=== PATIENT | female | born 1990 | race Caucasian/White ===

== ENCOUNTER 2019-03-13 05:25 | Inpatient (IN) | payer BC, OTHER ==
[2019-03-13] MEDS ORDERED: Lactated Ringers 1000 ML Bag* 1,000 ML IV ONE ×2 (07:56→08:06)
[2019-03-13] MEDS ORDERED: Buffered Lidocaine 1% SYRIN* 1 ML/SYRINGE INTRADERM ONE (07:56)
[2019-03-13] MEDS ORDERED: Lactated Ringers 1000 ML Bag* 1,000 ML IV SCH ×3 (08:00→20:00)
[2019-03-13] MEDS ORDERED: Sodium Citrate/Citric Acid* 15 ML UDC PO PRN (08:06)
[2019-03-13] MEDS ORDERED: Phenylephrine 40 MCG/ML SYRINGE IV PUSH PRN (08:06)
[2019-03-13] MEDS ORDERED: Famotidine TAB* 20 MG PO PRN (08:06)
--- NOTE | 2019-03-13 08:06 | HP ---
General Information - Reason for Visit Pt woke with ctx at about 0300, progressively worsening. 1-2cm dilation on presentation at about 0530. uncomplicated. - General Information Maternal Age: 28 Grav: 1 Para: 0 Estimated Due Date: 03/23/19 Determined By: Early Ultrasound Gestational Age in Weeks/Days: 38+4 wks Maternal Blood Type and Rh: A Negative - Results this Serology/RPR Result: Non-Reactive Rubella Result: Immune HBsAg Result: Negative HIV Result: Negative GBS Culture Result: Negative Past Medical History Delivery History: See Records Pertinent Past Medical History: See Records - h/o anxiety, back pain Pertinent Past Surgical History: See Records - breast augmentation Pertinent Family History: Non-Contributory - Antepartal Records Antepartal Records: Reviewed, Uncomplicated Review of Systems Constitutional: Uncomfortable CV Complaint: No Respiratory: Shortness of Breath: No Gastrointestinal: No Nausea/Vomiting Genitourinary: No Dysuria, No Bleeding, No Leaking Fluid Musculoskeletal: Contractions Neurological: No Headache Movement: Normal Exam Allergies/Adverse Reactions: Allergies Penicillins Allergy (Verified 03/13/19 05:41) Hives 126/93, P85, RR17, T98.1 - Measurements Height: 5 ft 6.93 in Weight: 182 lb 5.156 oz Weight in lbs: [phone] Body Mass Index (BMI): 28.6 Pre- Weight: 141 lb 1.533 oz Weight Gained This : 41.226 lbs and 0.007 ozs - Exam Breast: Breast Exam Deferred CVA: No CVA Tenderness Heart: Normal Rhythm/Heart Sounds HEENT: No Significant Findings Lungs: Clear Bilaterally Rectal: Rectal Exam Deferred - Abdominal Exam Abdomen Exam: Non-Tender, Fundal Height Consistent with Dates Targeted Exam Findings Cervical Exam: 3cm Effacement: 100% Station: -1 Presenting Part: Vertex Membrane Status: Intact Bleeding/Discharge: None EFM Findings - External Monitor Findings Baseline Heart Rate: 130 External Monitor Findings: Accelerations Present, No Pattern of Variable or Late Decelerations, Variability Moderate, Baseline Stable Contractions: Irregular, Strong Contraction Frequency: Q2-3 Assessment/Plan - Assessment 38+4 wks getting into active labor, intense ctx. Very reassuring status. - Plan Plan: Admit - Anticipate Vaginal Delivery Plan Comment: Pt requests epidural. IV, labs. Expect . - Date/Time of Admission Date of Admission: 03/13/19 Time of Admission: 08:07
[2019-03-13] MEDS ORDERED: OBEPIDURAL* 250 ML EPIDURAL ONE (08:13)
[2019-03-13 08:23] LABS: ABS Basophils 0 10^3/ul (0-0.2); ABS Eosinophils 0 10^3/ul (0-0.6); ABS Lymphocytes 1.4 10^3/ul (1.0-4.8); ABS Monocytes 0.6 10^3/ul (0-0.8); ABS Neutrophils 12.2 10^3/ul (1.5-7.7); ABS Nucleated RBC 0 10^3/ul; Eosinophil % 0.1 %; Hematocrit 35 % (33-41); Hemoglobin 12.1 g/dL (12.0-16.0); Lymphocyte % 9.7 %; Mean Corpuscular HGB Conc 34 g/dL (31-36); Mean Corpuscular Hemoglobin 30 pg (27-31); Mean Corpuscular Volume 88 fL (80-97); Mean Platelet Volume 10.3 fL (7.4-10.4); Nucleated Red Blood Cells % 0; Platelet Count 246 10^3/uL (150-450); Red Blood Count 4.01 10^6 /uL (3.70-4.87); Red Cell Distribution Width 14 % (10.5-15); White Blood Count 14.2 10^3/uL (3.5-10.8)
[2019-03-13] MEDS ORDERED: OBEPIDURAL* 250 ML EPIDURAL SCH (09:00)
[2019-03-13] MEDS ORDERED: Oxytocin in LR* 20 UNITS/1,000 ML BAG IVPB ONE (11:19)
[2019-03-13] MEDS ORDERED: Dibucaine 1% 28.35 GM TUBE ONE (11:54)
[2019-03-13] MEDS ORDERED: Witch Hazel PAD* JAR ONE (11:55)
--- NOTE | 2019-03-13 15:17 | PROCNOTE ---
[facility]: Delivery Note - Delivery A Date of : 03/13/19 Time of : 11:46 Sex: Male Weight at : 7 lb 1 oz Score 1 Minute: 8 Score 5 Minutes: 9 Gestational Age in Weeks and Days at Delivery: 38 Weeks and 4 Days Delivery Method: Spontaneous Vaginal Labor: Spontaneous Did Patient attempt ?: N/A, No Previous Amniotic Fluid: Clear Estimated Blood Loss: 300 Anesthesia/Analgesia: CEI for Labor Delivered By: Clive Suarez - Nursery Level of Nursery: Regular/Bedside - Perineum Perineal Injury Comment: Bilateral Labial Perineal Repair: By Delivering Practioner - Events Delivery Events of Note: Pitocin Only After Delivery Delivery Events of Note Comment: Compound hand - Additional Delivery Notes Additional Delivery Notes: Pt presented in early labor but with strong ctx. Progressed to 3cm after a couple hours. Received an epidural, and two hours later was already fully dilated with SROM. She pushed 1:20 with good effort. Head delivered in a controlled fashion. Shoulders delivered without difficulty and body followed. A compound hand was present during delivery. cried immediately. A very short cord was noted, so baby could only be held on lower abdomen. Cord doubly clamped and cut by father. IV pitocin started. Intact placenta delivered spontaneously. 1% lidocaine injected. Right labial/vulvar lac extending into introitus repaired with 3-0 Vicryl Rapide. Left labial lac repaired with 4-0 Vicryl rapide. Minimal bleeding at that time, firm fundus.
[2019-03-13] MEDS ORDERED: Oxytocin in LR* 20 UNITS/1,000 ML BAG IVPB SCH (20:00)
[2019-03-13] MEDS: Ibuprofen TAB* 600 MG PO PRN (20:29)
[2019-03-13] MEDS: Docusate CAP* 100 MG PO SCH (20:29)
[2019-03-13] MEDS: Witch Hazel PAD* JAR TOPICAL PRN (20:32)
[2019-03-13] MEDS: Dibucaine 1% 28.35 GM TUBE PR PRN (20:32)
[2019-03-13] MEDS ORDERED: Simethicone TAB* 80 MG TAB.CHEW PO SCH (21:00)
[2019-03-14] MEDS: Ibuprofen TAB* 600 MG PO PRN ×3 (03:41→17:51)
[2019-03-14 07:00] LABS: ABS Basophils 0 10^3/ul (0-0.2); ABS Eosinophils 0 10^3/ul (0-0.6); ABS Lymphocytes 1.9 10^3/ul (1.0-4.8); ABS Monocytes 0.6 10^3/ul (0-0.8); ABS Neutrophils 10.2 10^3/ul (1.5-7.7); ABS Nucleated RBC 0 10^3/ul; Eosinophil % 0 %; Hematocrit 31 % (33-41); Hemoglobin 10.3 g/dL (12.0-16.0); Lymphocyte % 14.9 %; Mean Corpuscular HGB Conc 34 g/dL (31-36); Mean Corpuscular Hemoglobin 30 pg (27-31); Mean Corpuscular Volume 90 fL (80-97); Mean Platelet Volume 9.8 fL (7.4-10.4); Nucleated Red Blood Cells % 0; Platelet Count 177 10^3/uL (150-450); Red Blood Count 3.43 10^6 /uL (3.70-4.87); Red Cell Distribution Width 14 % (10.5-15); White Blood Count 12.8 10^3/uL (3.5-10.8)
[2019-03-14] MEDS ORDERED: Ferrous Gluconate TAB* 324 MG TAB PO SCH (09:00)
[2019-03-14] MEDS: Docusate CAP* 100 MG PO SCH ×3 (09:09→20:12)
[2019-03-14] MEDS ORDERED: RHO D Immune Globulin (HUMAN)* 300 MCG = 1,500 I.U. INJ IM ONE ×2 (17:33→17:41)
[2019-03-14] MEDS: Acetaminophen TAB* 325 MG PO PRN (20:12)
[2019-03-14] MEDS: Dibucaine 1% 28.35 GM TUBE PR PRN (20:12)
[2019-03-15] MEDS: Ibuprofen TAB* 600 MG PO PRN (07:53)
[2019-03-15] MEDS: Docusate CAP* 100 MG PO SCH (07:54)
[2019-03-15] MEDS: Acetaminophen TAB* 325 MG PO PRN (07:54)
[2019-03-15 08:13] VITALS: BP 127/92
--- NOTE | 2019-03-15 08:20 | PTEDU ---
Patient Name: RADHA MENDOZA RADHA MENDOZA selected video: Follow Me Mum: [employer] to view on 019 at 8:18:26 AM [id number]
[2019-03-15] MEDS: Witch Hazel PAD* JAR TOPICAL PRN (10:26)
[2019-03-15] MEDS: Dibucaine 1% 28.35 GM TUBE PR PRN (10:27)
== END 2019-03-15 10:40 | disposition home or self-care (01) | DRG 807 ==
LOC: MCHOBOUT 05:25 → MCHOB 07:53
PROVIDERS: ADMIT Obstetrics & Gynecology; ATTEND Obstetrics & Gynecology
PROC: 10E0XZZ Delivery of Products of Conception, External Approach (ICD-10-PCS; principal; 2019-03-13)
PROC: 0HQ9XZZ Repair Perineum Skin, External Approach (ICD-10-PCS; 2019-03-13)
DX: O99.344 Other mental disorders complicating childbirth (principal); Z37.0 Single live birth; F41.9 Anxiety disorder, unspecified; O70.0 First degree perineal laceration during delivery; O32.6XX0 Maternal care for compound presentation, not applicable or unspecified; O69.3XX0 Labor and delivery complicated by short cord, not applicable or unspecified; Z3A.38 38 weeks gestation of pregnancy
CPT/HCPCS: 36415; 85025; 85461; 86850; 86870; 86880; 86900; 86901; 88307; A9270-GY; J2790

== ENCOUNTER 2019-06-07 07:43 | Emergency (ER) | payer OTHER ==
[2019-06-07 07:57] VITALS: BP 91/66
--- NOTE | 2019-06-07 08:12 | UC ---
Dental HPI - HPI Summary HPI Summary: Patient is a 28-year-old female who presents to the urgent care with a chief complaint of having dental pain of the right lower wisdom tooth. Patient reports that she is scheduled to remove the wisdom tooth sometime the month however today she came to the urgent care because the right lower wisdom tooth has been painful. Today she woke up and noticed some swelling therefore she decided to come to the urgent care for further workup and management. She denies any trismus, no swelling of the tongue, no swelling of the lips. She has no other complaints. She denies any fever. - History of Current Complaint Chief Complaint: UCDentalProblem Stated Complaint: MOUTH PAIN Time Seen by Provider: 06/07/19 07:53 Hx Obtained From: Patient Hx Last Menstrual Period: 05/28/19 Pain Intensity: 4 - Allergies/Home Medications Allergies/Adverse Reactions: Allergies Allergy/AdvReac Type Severity Reaction Status Date / Time Penicillins Allergy Hives Verified 03/13/19 05:41 PMH/Surg Hx/FS Hx/Imm Hx Previously Healthy: Yes - Surgical History Surgical History: None - Family History Known Family History: Positive: Non-Contributory - Social History Alcohol Use: Occasionally Substance Use Type: None Smoking Status (MU): Never Smoked Tobacco - Immunization History Most Recent Influenza Vaccination: 08/27/2018 Most Recent Pneumonia Vaccination: n/a Review of Systems All Other Systems Reviewed And Are Negative: Yes Constitutional: Positive: Negative Skin: Positive: Negative Eyes: Positive: Negative ENT: Positive: Negative Respiratory: Positive: Negative Cardiovascular: Positive: Negative Gastrointestinal: Positive: Negative Genitourinary: Positive: Negative Motor: Positive: Negative Neurovascular: Positive: Negative Musculoskeletal: Positive: Negative Neurological: Positive: Negative Psychological: Positive: Negative Is Patient Immunocompromised?: No Physical Exam - Summary Physical Exam Summary: Vital signs: Reviewed Gen.: Patient is a well developed and nourished female in no acute distress. Patient is sitting comfortably on the stretcher. Head: Normacephalic and atraumatic Eyes: PERRLA, EOMI x2. Ears: Right ear canal and TM WNL Left ear canal and TM WNL Nose Nose with dry mucosa and clear discharge. No sinus tenderness and mouth: No pharyngeal erythema. Positive erythema and slight swelling of the gum around the right lower wisdom tooth. Neck: Supple, no bilateral submandibular and anterior cervical lymphadenopathy. No JVD Lungs: CTA B/L CVS: S1 & S2 present. No murmurs appreciated. ABDOMEN: Soft NT w/ positive BS. EXT: FROM x 4 NEURO: A+O X 3. Triage Information Reviewed: Yes Appearance: Well-Appearing Vital Signs: Initial Vital Signs Temp 97.9 F 06/07/19 07:50 Pulse 90 06/07/19 07:50 Resp 16 06/07/19 07:50 BP 91/66 06/07/19 07:50 Pulse Ox 97 06/07/19 07:50 Vital Signs Reviewed: Yes Dental Complaint Course/Dx - Course Course Of Treatment: It seems that the patient is developing an infection around the wisdom tooth. She has had the symptoms in the past for which I think is a place the patient in clindamycin. She will take ibuprofen for pain. Patient is hemolyticus stable. Patient will follow with her dentist and [facility] tomorrow. - Differential Dx/Diagnosis Provider Diagnosis: Pain, dental Discharge - Sign-Out/Discharge Documenting (check all that apply): Patient Departure All imaging exams completed and their final reports reviewed: No Studies - Discharge Plan Condition: Stable Disposition: HOME Prescriptions: Clindamycin HCl 150 mg PO QID #40 capsule Patient Education Materials: Toothache (ED) Referrals: No Primary Care Phys,NOPCP [Primary Care Provider] - [facility] [Outside] Additional Instructions: Take medications as instructed Increase your fluid intake F/U with PCP in the next 2-3 days Return to the if symptoms worsen - Billing Disposition and Condition Condition: STABLE Disposition: Home
--- NOTE | 2019-06-09 13:07 | UC ---
- Progress Note Progress Note: Pt called stating that the clindamycin QID is causing her to have an upset stomach. She is allergic to PCN and other drugs such as sulfa, macrolide, and Fluoroquinolones have little activity or resistance against typical dental infectious pathogens. Recommend that she continue the clindamycin, but take with food and take a probiotic OTC. If she cannot tolerate GI upset - recommend that she see a dentist or return to the clinic for IM ceftriaxone Course/Dx - Diagnoses Provider Diagnoses: Pain, dental Discharge - Sign-Out/Discharge Documenting (check all that apply): Post-Discharge Follow Up All imaging exams completed and their final reports reviewed: No Studies - Discharge Plan Condition: Stable Disposition: HOME Prescriptions: Clindamycin HCl 150 mg PO QID #40 capsule Patient Education Materials: Toothache (ED) Referrals: [facility] [Outside] No Primary Care Phys,NOPCP [Primary Care Provider] - Additional Instructions: Take medications as instructed Increase your fluid intake F/U with PCP in the next 2-3 days Return to the if symptoms worsen - Billing Disposition and Condition Condition: STABLE Disposition: Home
== END 2019-06-07 08:17 | disposition home or self-care (01) ==
LOC: UCEAST 07:43
DX: K08.89 Other specified disorders of teeth and supporting structures (principal); Z88.0 Allergy status to penicillin
CPT/HCPCS: 99212; G0463

== ENCOUNTER 2019-07-18 07:02 | Emergency (ER) | payer OTHER ==
[2019-07-18 07:12] VITALS: BP 104/64
[2019-07-18] MEDS ORDERED: Ibuprofen TAB* 600 MG PO ONE (07:24)
--- NOTE | 2019-07-18 07:27 | UC ---
Throat Pain/Nasal Sarath HPI - HPI Summary HPI Summary: 28-year-old woman comes in with a chief complaint of sore throat and body aches. Started with a sore throat about 2 days ago. Gradually gotten worse. Overnight her throat pain increased significantly. Is also having body aches. No fevers measured. No complaint of shortness of breath or chest congestion. No dysuria no recent tick bites. Swallowing makes the pain worse. Does feel generalized fatigue. - History of Current Complaint Chief Complaint: UCRespiratory Stated Complaint: EAR PAIN SORE THROAT Time Seen by Provider: 07/18/19 07:03 Hx Last Menstrual Period: 06/28/19 Pain Intensity: 5 - Allergies/Home Medications Allergies/Adverse Reactions: Allergies Allergy/AdvReac Type Severity Reaction Status Date / Time Penicillins Allergy Hives Verified 07/18/19 07:12 PMH/Surg Hx/FS Hx/Imm Hx Previously Healthy: Yes - Surgical History Surgical History: None - Family History Known Family History: Positive: Non-Contributory - Social History Alcohol Use: Occasionally Substance Use Type: None Smoking Status (MU): Never Smoked Tobacco - Immunization History Most Recent Influenza Vaccination: 08/27/2018 Most Recent Pneumonia Vaccination: n/a Review of Systems All Other Systems Reviewed And Are Negative: Yes Constitutional: Positive: Other - see hpi Skin: Positive: Negative Eyes: Positive: Negative ENT: Positive: Sore Throat, Ear Ache Respiratory: Positive: Negative Cardiovascular: Positive: Negative Gastrointestinal: Positive: Negative Genitourinary: Positive: Negative Motor: Positive: Negative Neurovascular: Positive: Negative Musculoskeletal: Positive: Myalgia Neurological: Positive: Negative Psychological: Positive: Negative Is Patient Immunocompromised?: No Physical Exam Vital Signs: Initial Vital Signs Temp 98.3 F 07/18/19 07:08 Pulse 130 07/18/19 07:08 Resp 16 07/18/19 07:08 BP 104/64 07/18/19 07:08 Pulse Ox 97 07/18/19 07:08 Throat Pain/Nasal Course/Dx - Course Course Of Treatment: DISCUSSED VIRAL VERSES BACTERIAL INFECTION AND THE ROLE OF ANTIBIOTICS. THE PATIENT PREFERS TO HAVE A PRESCRIPTION FOR AN ANTIBIOTIC AT THIS TIME. - Differential Dx/Diagnosis Provider Diagnosis: Pharyngitis Discharge ED - Sign-Out/Discharge Documenting (check all that apply): Patient Departure All imaging exams completed and their final reports reviewed: No Studies - Discharge Plan Condition: Stable Disposition: HOME Prescriptions: Azithromyxin KATRINA (NF) [Z-Katrina (Zithromax) 250 mg tabs #6] 2 tab PO .TODAY, THEN 1 DAILY #6 tab Patient Education Materials: Pharyngitis (ED) Referrals: Glenna Liu MD [Primary Care Provider] - Additional Instructions: FOLLOW UP WITH YOUR DOCTOR IF NOT COMPLETELY IMPROVED. GET RECHECKED SOONER IF YOUR CONDITION WORSENS OR ANY QUESTIONS OR CONCERNS. - Billing Disposition and Condition Condition: STABLE Disposition: Home
== END 2019-07-18 07:33 | disposition home or self-care (01) ==
LOC: UCEAST 07:02
DX: J02.9 Acute pharyngitis, unspecified (principal); Z88.0 Allergy status to penicillin
CPT/HCPCS: 87651; 99212; A9270-GY; G0463

== ENCOUNTER 2019-10-17 18:37 | Emergency (ER) | payer OTHER ==
[2019-10-17 18:49] VITALS: BP 99/64
[2019-10-17] MEDS ORDERED: Cephalexin CAP* 500 MG PO ONE ×2 (19:11)
--- NOTE | 2019-10-17 19:15 | UC ---
Throat Pain/Nasal Sarath HPI - HPI Summary HPI Summary: 28-year-old woman comes in with a chief complaint of sore throat. She has had it for 2 days. Hurts when she swallows. Pain started in the back of the throat now it's spreading into the sides of the neck. This makes her neck feel stiff. She does get some frontal headache when she leans forward but it goes away again when she stands up. No fevers. She has some upper thoracic back pain lateral to the midline. No chest congestion. Patient is 6 weeks . - History of Current Complaint Chief Complaint: UCGeneralIllness Stated Complaint: SORE THROAT Time Seen by Provider: 10/17/19 18:52 Hx Last Menstrual Period: 06/28/19 Pain Intensity: 5 - Allergies/Home Medications Allergies/Adverse Reactions: Allergies Allergy/AdvReac Type Severity Reaction Status Date / Time Penicillins Allergy Hives Verified 10/17/19 18:49 PMH/Surg Hx/FS Hx/Imm Hx Previously Healthy: Yes - Surgical History Surgical History: Yes Surgery Procedure, Year, and Place: breast augmentation - Family History Known Family History: Positive: Non-Contributory - Social History Alcohol Use: None Substance Use Type: None Smoking Status (MU): Never Smoked Tobacco - Immunization History Most Recent Influenza Vaccination: 08/27/2018 Most Recent Pneumonia Vaccination: n/a Review of Systems All Other Systems Reviewed And Are Negative: Yes Constitutional: Positive: Other - SEE HPI Skin: Positive: Negative Eyes: Positive: Negative ENT: Positive: Sore Throat Respiratory: Positive: Negative Cardiovascular: Positive: Negative Gastrointestinal: Positive: Negative Motor: Positive: Negative Neurovascular: Positive: Negative Musculoskeletal: Positive: Myalgia Neurological: Positive: Headache Psychological: Positive: Negative Is Patient Immunocompromised?: No Physical Exam Triage Information Reviewed: Yes Appearance: No Pain Distress, Well-Nourished, Ill-Appearing - MILD Vital Signs: Initial Vital Signs Temp 97.6 F 10/17/19 18:46 Pulse 89 10/17/19 18:46 Resp 16 10/17/19 18:46 BP 99/64 10/17/19 18:46 Pulse Ox 100 10/17/19 18:46 Vital Signs Reviewed: Yes Eye Exam: Normal Eyes: Positive: Conjunctiva Clear ENT: Positive: Pharyngeal erythema, TMs normal, Uvula midline. Negative: Tonsillar exudate, Muffled voice, Hoarse voice Neck: Positive: Supple, Tenderness @ - Lateral aspects of the upper neck. Patient is able to flex and extend her neck. Respiratory: Positive: Lungs clear, Normal breath sounds, No respiratory distress Cardiovascular: Positive: RRR Musculoskeletal: Positive: Strength Intact, ROM Intact Neurological: Positive: Alert, Muscle Tone Normal Psychological: Positive: Age Appropriate Behavior Skin Exam: Normal Throat Pain/Nasal Course/Dx - Course Course Of Treatment: We discussed the signs and symptoms of viral versus bacterial infections and the role of antibiotics. At this time the patient prefers to be on antibiotics. Patient had a rash with amoxicillin but she reports that she's taken Keflex cephalexin in the past without any problems. We discussed the signs and symptoms of meningitis. Patient's neck stiffness starts anteriorly in the pharynx and goes laterally into the upper lateral aspects of the neck. Is not midline posterior. Her neck is supple. Her back pain is upper thoracic and the paraspinous muscles and lateral over the scapula. Her headache is frontal and intermittent. No fever. Clinically at this time the patient does not have meningitis. I let the patient know that if her symptoms worsened or she gets symptoms of meningitis she needed further evaluation in the emergency department. - Differential Dx/Diagnosis Provider Diagnosis: Pharyngitis Discharge ED - Sign-Out/Discharge Documenting (check all that apply): Patient Departure All imaging exams completed and their final reports reviewed: No Studies - Discharge Plan Condition: Stable Disposition: HOME Prescriptions: Cephalexin CAP* [Keflex CAP*] 500 mg PO TID #28 cap Patient Education Materials: Pharyngitis (ED) Referrals: Glenna Liu MD [Primary Care Provider] - Additional Instructions: FOLLOW UP WITH YOUR DOCTOR IF NOT COMPLETELY IMPROVED. GET REEVALUATED SOONER IF NOT IMPROVED OR GO TO THE EMERGENCY DEPARTMENT IF WORSE; HEADACHE, STIFF NECK AND/OR BACK, SIGNS OF MENINGITIS, CONFUSION OR ANY QUESTIONS OR CONCERNS. - Billing Disposition and Condition Condition: STABLE Disposition: Home
== END 2019-10-17 19:24 | disposition home or self-care (01) ==
LOC: UCEAST 18:37
DX: J02.9 Acute pharyngitis, unspecified (principal); R21 Rash and other nonspecific skin eruption; Z88.0 Allergy status to penicillin
CPT/HCPCS: 87651; 99212; A9270-GY; G0463